=== PATIENT | female | born 1985 | race Caucasian/White ===

== ENCOUNTER 2016-08-28 13:15 | Emergency (ER) | payer OTHER, MEDICAID ==
--- NOTE | 2016-08-28 13:32 | ER Document Report ---
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 A comprehensive ED assessment and evaluation of the patient, analysis of test results and completion of medical decision making process will be conducted by an additional ED providers. TRAVEL OUTSIDE OF THE [place] IN LAST 30 DAYS: No - Related Data Allergies/Adverse Reactions: iodine [Iodine] Allergy (Intermediate, Verified 07/07/15 09:59) dermatitis latex [Latex] Allergy (Intermediate, Verified 07/07/15 09:59) dermatitis Past Medical History - Past Medical History Cardiac Medical History: Denies: Hx Coronary Artery Disease, Hx Heart Attack, Hx Hypertension Pulmonary Medical History: Denies: Hx Asthma, Hx Bronchitis, Hx COPD, Hx Pneumonia Neurological Medical History: Denies: Hx Cerebrovascular Accident, Hx Seizures Musculoskeltal Medical History: Denies Hx Arthritis - Immunizations Hx Diphtheria, Pertussis, Tetanus Vaccination: Yes - 01/31/15 Physical Exam - Vital signs Vitals: Temp Pulse Resp BP Pulse Ox 98.2 F 73 20 113/70 100 08/28/16 13:24 08/28/16 13:24 08/28/16 13:24 08/28/16 13:24 08/28/16 13:24 Course - Vital Signs Vital signs: Temp Pulse Resp BP Pulse Ox 98.2 F 73 20 113/70 100 08/28/16 13:24 08/28/16 13:24 08/28/16 13:24 08/28/16 13:24 08/28/16 13:24
--- NOTE | 2016-08-28 14:19 | ER Document Report ---
ED General - General Chief Complaint: Cat Bite Stated Complaint: CAT BITE/LEFT ARM Mode of Arrival: Ambulatory Information source: Patient Notes: 30-year-old female presents with Right to the left upper extremity tricep region just prior to arrival. Patient notes that the teeth were intact afterwards. TRAVEL OUTSIDE OF THE [place] IN LAST 30 DAYS: No - HPI Onset: Just prior to arrival Onset/Duration: Sudden Quality of pain: No pain Severity: Mild Pain Level: 1 Associated symptoms: None Exacerbated by: Denies Relieved by: Denies Similar symptoms previously: Yes Recently seen / treated by doctor: Yes Notes: Patient clean the area with chlorhexidine - Related Data Allergies/Adverse Reactions: iodine [Iodine] Allergy (Intermediate, Verified 08/28/16 13:32) dermatitis latex [Latex] Allergy (Intermediate, Verified 08/28/16 13:32) dermatitis Past Medical History - General Information source: Patient - Social History Smoking Status: Never Smoker Cigarette use (# per day): No Chew tobacco use (# tins/day): No Smoking Education Provided: No Frequency of alcohol use: None Drug Abuse: None Family History: Reviewed & Not Pertinent Patient has suicidal ideation: No Patient has homicidal ideation: No - Past Medical History Cardiac Medical History: Denies: Hx Coronary Artery Disease, Hx Heart Attack, Hx Hypertension Pulmonary Medical History: Denies: Hx Asthma, Hx Bronchitis, Hx COPD, Hx Pneumonia Neurological Medical History: Denies: Hx Cerebrovascular Accident, Hx Seizures Renal/ Medical History: Denies: Hx Peritoneal Dialysis Musculoskeltal Medical History: Denies Hx Arthritis - Immunizations Hx Diphtheria, Pertussis, Tetanus Vaccination: Yes - 01/31/15 Review of Systems - Review of Systems Notes: REVIEW OF SYSTEMS: CONSTITUTIONAL : Denies fever, chills, or sweats. Denies recent illness. EENT: Denies eye, ear, throat, or mouth pain or symptoms. Denies nasal or sinus congestion or discharge. Denies throat, tongue, or mouth swelling or difficulty swallowing. CARDIOVASCULAR: Denies chest pain. Denies palpitations or racing or irregular heart beat. Denies ankle edema. RESPIRATORY: Denies cough, cold, or chest congestion. Denies shortness of breath, difficulty breathing, or wheezing. GASTROINTESTINAL: Denies abdominal pain or distention. Denies nausea, vomiting , or diarrhea. Denies blood in vomitus, stools, or per rectum. Denies black, tarry stools. Denies constipation. GENITOURINARY: Denies difficulty urinating, painful urination, burning, frequency, blood in urine, or discharge. FEMALE GENITOURINARY: Denies vaginal bleeding, heavy or abnormal periods, irregular periods. Denies vaginal discharge or odor. MUSCULOSKELETAL: Denies back or neck pain or stiffness. Denies joint pain or swelling. SKIN: cat bite HEMATOLOGIC : Denies easy bruising or bleeding. LYMPHATIC: Denies swollen, enlarged glands. NEUROLOGICAL: Denies confusion or altered mental status. Denies passing out or loss of consciousness. Denies dizziness or lightheadedness. Denies headache. Denies weakness or paralysis or loss of use of either side. Denies problems with gait or speech. Denies sensory loss, numbness, or tingling. Denies seizures. PSYCHIATRIC: Denies anxiety or stress. Denies depression, suicidal ideation, or homicidal ideation. ALL OTHER SYSTEMS REVIEWED AND NEGATIVE. Dictation was performed using [employer] voice recognition software PHYSICAL EXAMINATION: GENERAL: Well-appearing, well-nourished and in no acute distress. HEAD: Atraumatic, normocephalic. EYES: Pupils equal round extraocular movements intact, conjunctiva are normal. ENT: Nares patent NECK: Normal range of motion LUNGS: No respiratory distress Musculoskeletal: Normal range of motion NEUROLOGICAL: Normal speech, normal gait. PSYCH: Normal mood, normal affect. SKIN: 2 puncture wound and scrate to the left inner upper extremity Physical Exam - Vital signs Vitals: Temp Pulse Resp BP Pulse Ox 98.2 F 73 20 113/70 100 08/28/16 13:24 08/28/16 13:24 08/28/16 13:24 08/28/16 13:24 08/28/16 13:24 Course - Re-evaluation Re-evalutation: 08/28/16 14:18 Patient will be started on antibodies otherwise stable for discharge After performing a Medical Screening Examination, I estimate there is LOW risk for OPEN FRACTURE, COMPARTMENT SYNDROME, TENDON RUPTURE, ACUTE NEUROVASCULAR INJURY, or RETAINED FOREIGN BODY, thus I consider the discharge disposition reasonable. Also, there is no evidence or peritonitis, sepsis, or toxicity. The patient and I have discussed the diagnosis and risks, and we agree with discharging home with close follow-up with the understanding that symptoms and presentations can change. We also discussed returning to the Emergency Department immediately if new or worsening symptoms occur. We have discussed the symptoms which are most concerning (e.g., changing or worsening pain, fever , numbness, weakness, cool or painful digits) that necessitate immediate return. - Vital Signs Vital signs: Temp Pulse Resp BP Pulse Ox 98.2 F 73 20 113/70 100 08/28/16 13:24 08/28/16 13:24 08/28/16 13:24 08/28/16 13:24 08/28/16 13:24 Discharge - Discharge Clinical Impression: Cat bite Qualifiers: Encounter type: initial encounter Qualified Code(s): W55.01XA - Bitten by cat, initial encounter Condition: Stable Disposition: HOME, SELF-CARE Instructions: Animal Bites ([facility]) Prescriptions: Amox Tr/Potassium Clavulanate [Augmentin 875-125 Tablet] 1 tab PO BID 10 Days Referrals: KEVIN CONNELL MD [Primary Care Provider] - Follow up in 3-5 days
[2016-08-28] MEDS ORDERED: DIPH/PERTUSS(ACELL)/TETANUS VAC/PF 0.5 ML SYR (>=10YO) IM ONE (14:24)
[2016-08-28 14:44] VITALS: BP 118/75
== END 2016-08-28 14:30 | disposition home or self-care (01) ==
LOC: ER 13:15
DX: S41.152A Open bite of left upper arm, initial encounter (principal); W55.01XA Bitten by cat, initial encounter; Z91.040 Latex allergy status
CPT/HCPCS: 99283

== ENCOUNTER 2016-11-30 07:39 | Emergency (ER) | payer BC, OTHER ==
--- NOTE | 2016-11-30 09:10 | ER Document Report ---
HPI - HPI Patient complains to provider of: nail bed pain Pain Level: 2 Context: Patient is a 31-year-old female presents emergency department with avulsion of the right hand. Patient states that she is getting her thumb into her car when she caught it on the door. She admits to bleeding but is otherwise controlled in pain. Otherwise she denies any swelling of the nailbed, deformities, decrease in motor sensation. Otherwise no medical problems. Tetanus is up to - CARDIOVASCULAR Cardiovascular: DENIES: Chest pain - REPRODUCTIVE Reproductive: REPORTS: : - DERM Skin Color: Normal Past Medical History - Social History Smoking Status: Never Smoker Chew tobacco use (# tins/day): No Frequency of alcohol use: None Drug Abuse: None Family History: Reviewed & Not Pertinent Patient has suicidal ideation: No Patient has homicidal ideation: No - Past Medical History Cardiac Medical History: Denies: Hx Coronary Artery Disease, Hx Heart Attack, Hx Hypertension Pulmonary Medical History: Denies: Hx Asthma, Hx Bronchitis, Hx COPD, Hx Pneumonia Neurological Medical History: Denies: Hx Cerebrovascular Accident, Hx Seizures Renal/ Medical History: Denies: Hx Peritoneal Dialysis Musculoskeltal Medical History: Denies Hx Arthritis Past Surgical History: Reports: Hx Oral Surgery, Hx Tubal Ligation - Immunizations Hx Diphtheria, Pertussis, Tetanus Vaccination: Yes - 01/31/15 Vertical Provider Document - CONSTITUTIONAL Agree With Documented VS: Yes Exam Limitations: No Limitations General Appearance: WD/WN, No Apparent Distress - INFECTION CONTROL TRAVEL OUTSIDE OF THE [place] IN LAST 30 DAYS: No - RESPIRATORY O2 Sat by Pulse Oximetry: 97 - CARDIOVASCULAR Pulses: Normal: Radial Notes: Capillary refill less than 2 seconds in all upper extremity digits bilaterally - MUSCULOSKELETAL/EXTREMETIES Musculoskeletal/Extremeties: MAEW, FROM, Tender - At the tip of the right thumbnail. No evidence of tenderness, subungual hematoma. No evidence of nail avulsion requiring removal of the nail. - NEURO Level of Consciousness: Awake, Alert, Appropriate Motor/Sensory: No Motor Deficit, No Sensory Deficit - DERM Integumentary: Warm, Dry, No Rash Course - Re-evaluation Re-evalutation: 11/30/16 18:33 Nail removal is not indicated at this time. Stable for discharge home with instruction for pressure dressing and strict return precautions - Vital Signs Vital signs: Temp Pulse Resp BP Pulse Ox 98.2 F 93 18 123/74 97 11/30/16 07:44 11/30/16 07:44 11/30/16 07:44 11/30/16 07:44 11/30/16 07:44 Discharge - Discharge Clinical Impression: Nail avulsion, finger Condition: Good Disposition: HOME, SELF-CARE Instructions: Avulsed Nail ([facility]) Additional Instructions: Keep a pressure dressing on it to hold your nail onto the nailbed to prohibit from blood collecting underneath. You can use a regular band-aid to do so Referrals: GALILEA MERCER, [Primary Care Provider] - Follow up as needed
[2016-11-30 09:21] VITALS: BP 110/65
== END 2016-11-30 09:21 | disposition home or self-care (01) ==
LOC: ER 07:39
DX: O9A.219 Injury, poisoning and certain other consequences of external causes complicating pregnancy, unspecified trimester (principal); S61.101A Unspecified open wound of right thumb with damage to nail, initial encounter; W22.8XXA Striking against or struck by other objects, initial encounter; Y93.89 Activity, other specified; Y92.009 Unspecified place in unspecified non-institutional (private) residence as the place of occurrence of the external cause; Z3A.00 Weeks of gestation of pregnancy not specified
CPT/HCPCS: 99283

== ENCOUNTER → 2017-12-20 | Outpatient (CLI) | payer OTHER, BC ==
--- NOTE | 2017-12-21 15:51 | WOMENS IMAGING REPORT ---
EXAM DESCRIPTION: BILAT SCREENING MAMMO W/CAD COMPLETED DATE/TIME: 12/20/2017 10:20 am REASON FOR STUDY: ROUTINE SCREENING;Z12.31 Z80.3 FAMILY HISTORY OF MALIGNANT NEOPLASM OF BREAST COMPARISON: None. TECHNIQUE: Standard craniocaudal and mediolateral oblique views of each breast recorded using digita l acquisition. LIMITATIONS: None. FINDINGS: No masses, calcifications or architectural distortion. No areas of suspicion. Read with the assistance of CAD. .[facility] - R2 Cenova Version 1.3 .[facility] - R2 Cenova Version 1.3 .[facility] - R2 Cenova Version 2.4 .[facility] - R2 Cenova Version 2.4 .[facility] - R2 Medical Referral Coordinator Version 9.2 IMPRESSION: NORMAL MAMMOGRAM. BIRADS 1. BREAST DENSITY: c. The breasts are heterogeneously dense, which may obscure small masses. BIRAD: 1 NEGATIVE RECOMMENDATION: ROUTINE SCREENING COMMENT: The patient has been notified of the results by letter per SA requirements. Additional no tification policies are in place for contacting patient with suspicious or incomplete findings. Quality ID #[id number]: [employer] recommends an annual screening mammogram for women aged 40 years or over. This facility utilizes a reminder system to ensure that all patients receive reminder letters, and/or direct phone calls for appointments. This includes reminders for routine scr eening mammograms, diagnostic mammograms, or other Breast Imaging Interventions when appropriate. Th is patient will be placed in the appropriate reminder system. The [employer] [employer] (ACR) has developed recommendations for screening MRI of the breast s in certain patient populations, to be used in conjunction with mammography. Breast MRI surveillanc e may be appropriate for women with more than 20% lifetime risk of developing breast cancer as deter mined by genetic testing, significant family history of the disease, or history of mantle radiation f or Hodgkins Disease. ACR Practice Guidelines 2008. TECHNICAL DOCUMENTATION: FINDING NUMBER: (1) ASSESSMENT: (1) JOB ID: [id number] [employer]- All Rights Reserved Reading location - IP/workstation name: [email or web address]
== END ==
LOC: WI 09:41
PROVIDERS: ATTEND Nurse Practitioner Family
DX: Z12.31 Encounter for screening mammogram for malignant neoplasm of breast (principal); Z80.3 Family history of malignant neoplasm of breast
CPT/HCPCS: 77067

== ENCOUNTER 2018-02-17 17:34 | Emergency (ER) | payer OTHER, BC ==
[2018-02-17] MEDS ORDERED: IBUPROFEN 400 MG TABLET PO ONE (18:36)
--- NOTE | 2018-02-17 19:04 | RADIOLOGY REPORT (SQ) ---
EXAM DESCRIPTION: CHEST 2 VIEWS COMPLETED DATE/TIME: 02/17/2018 6:56 pm REASON FOR STUDY: chest pain COMPARISON: None. EXAM PARAMETERS: NUMBER OF VIEWS: two views TECHNIQUE: Digital Frontal and Lateral radiographic views of the chest acquired. RADIATION DOSE: NA LIMITATIONS: none FINDINGS: LUNGS AND PLEURA: No opacities, masses or pneumothorax. No pleural effusion. MEDIASTINUM AND HILAR STRUCTURES: No masses or contour abnormalities. HEART AND VASCULAR STRUCTURES: Heart normal size. No evidence for failure. BONES: No acute findings. HARDWARE: None in the chest. OTHER: No other significant finding. IMPRESSION: NO ACUTE RADIOGRAPHIC FINDING IN THE CHEST. TECHNICAL DOCUMENTATION: JOB ID: [id number] [employer]- All Rights Reserved Reading location - IP/workstation name: [email or web address]
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
--- NOTE | 2018-02-17 19:05 | RADIOLOGY REPORT (SQ) ---
EXAM DESCRIPTION: HAND RIGHT 3 VIEWS COMPLETED DATE/TIME: 02/17/2018 6:56 pm REASON FOR STUDY: right hand pain COMPARISON: None. EXAM PARAMETERS: NUMBER OF VIEWS: Three views. TECHNIQUE: AP, lateral and oblique radiographic images acquired of the right hand. LIMITATIONS: None. FINDINGS: MINERALIZATION: Normal. BONES: No acute fracture or dislocation. No worrisome bone lesions. JOINTS: No effusions. SOFT TISSUES: No soft tissue swelling. No foreign body. OTHER: No other significant finding. IMPRESSION: NEGATIVE STUDY OF THE RIGHT HAND. NO RADIOGRAPHIC EVIDENCE OF ACUTE INJURY. TECHNICAL DOCUMENTATION: JOB ID: [id number] [employer]- All Rights Reserved Reading location - IP/workstation name: [email or web address]
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
[2018-02-17] MEDS ORDERED: METHOCARBAMOL 750 MG TABLET PO ONE (19:38)
== END 2018-02-17 20:11 | disposition home or self-care (01) ==
LOC: ER 17:34
DX: S63.641A Sprain of metacarpophalangeal joint of right thumb, initial encounter (principal); S16.1XXA Strain of muscle, fascia and tendon at neck level, initial encounter; S00.83XA Contusion of other part of head, initial encounter; S80.212A Abrasion, left knee, initial encounter; R51 Headache; R07.9 Chest pain, unspecified; M25.531 Pain in right wrist; V43.52XA Car driver injured in collision with other type car in traffic accident, initial encounter; Z91.040 Latex allergy status
CPT/HCPCS: 99284; 71046; 73130; 73110; 29125; J3490 ×2

== ENCOUNTER → 2018-03-09 | Outpatient (CLI) | payer BC, OTHER ==
--- NOTE | 2018-03-12 09:11 | RADIOLOGY REPORT (SQ) ---
EXAM DESCRIPTION: MRI RT UPPER EXTREMITY WITHOUT COMPLETED DATE/TIME: 03/09/2018 12:52 pm REASON FOR STUDY: SPRAIN OF METACARPOPHALANGEAL JOINT OF RIGHT THUMB, INIT S63.641A SPRAIN OF METAC ARPOPHALANGEAL JOINT OF RIGHT THUMB, COMPARISON: None. TECHNIQUE: Multiplanar imaging to include T1-weighted images, T-2 weighted images, and gradient echo imaging. Orthogonal images orientated to the plane of the right thumb. Images saved to PACS. LIMITATIONS: None. FINDINGS: BONES: No generalized marrow placement. No occult fracture. LIGAMENTS: Ulnar collateral ligament is torn from the base of the proximal phalanx but not retracted. Adductor aponeurosis intact. No Stener lesion. TENDONS: Tendons are intact without evidence for tendinopathy. SOFT TISSUES: Muscles and subcutaneous soft tissues without significant abnormality. OTHER: No other significant finding. IMPRESSION: Torn ulnar collateral ligament. TECHNICAL DOCUMENTATION: JOB ID: [id number] [employer]- All Rights Reserved Reading location - IP/workstation name: [email or web address]
== END ==
LOC: RAD 11:57
PROVIDERS: ATTEND Orthopaedic Surgery
DX: S63.641A Sprain of metacarpophalangeal joint of right thumb, initial encounter (principal); X58.XXXA Exposure to other specified factors, initial encounter

== ENCOUNTER 2018-03-22 05:29 | Day surgery (SDC) | payer BC, OTHER ==
[2018-03-13 11:41] LABS: HEMATOCRIT 38.1 % (36.0-47.0); MEAN CORPUSCULAR HEMOGLOBIN 30.2 pg (27.0-33.4); MEAN CORPUSCULAR HGB CONC 34.1 g/dL (32.0-36.0); MEAN CORPUSCULAR VOLUME 89 fl (80-97); PLATELET COUNT 277 10^3/uL (150-450); RED CELL DISTRIBUTION WIDTH 12.7 % (11.5-14.0); WHITE BLOOD COUNT 5.8 10^3/uL (4.0-10.5)
[2018-03-13 11:44] LABS: APPEARANCE,URINE SLIGHTLY-CLOUDY; BILIRUBIN,URINE NEGATIVE (NEGATIVE); COLOR,URINE YELLOW; GLUCOSE, URINE NEGATIVE (NEGATIVE); KETONES,URINE NEGATIVE (NEGATIVE); LEUKOCYTE ESTERASE,URINE TRACE (NEGATIVE); NITRITE,URINE NEGATIVE (NEGATIVE); PROTEIN,URINE NEGATIVE (NEGATIVE); URINE SPECIFIC GRAVITY 1.023; UROBILINOGEN,URINE NEGATIVE mg/dL (<2.0)
[2018-03-13 11:59] LABS: BLOOD UREA NITROGEN 11 mg/dL (7-20); CALCIUM 9.2 mg/dL (8.4-10.2); POTASSIUM 3.7 mmol/L (3.6-5.0)
[2018-03-13 12:41] LABS: ALANINE AMINOTRANSFERASE 19 U/L (9-52); ALBUMIN 3.8 g/dL (3.5-5.0); ALKALINE PHOSPHATASE 57 U/L (38-126); ANION GAP 7 (5-19); ASPARTATE AMINO TRANSFERASE 21 U/L (14-36); BILIRUBIN,DIRECT 0.2 mg/dL (0.0-0.4); BILIRUBIN,TOTAL 0.3 mg/dL (0.2-1.3); CARBON DIOXIDE 27 mmol/L (22-30); CHLORIDE 107 mmol/L (98-107); GLUCOSE 88 mg/dL (75-110); SODIUM 140.7 mmol/L (137-145); TOTAL PROTEIN 7.1 g/dL (6.3-8.2)
[~2018-03-22 05:29] MED LIST: CEFAZOLIN 2 GM/D5W RTU 2 GM/50 ML RTUPB IV ONE; CEFAZOLIN 2 GM/D5W RTU 2 GM/50 ML RTUPB IV PRN; LACTATED RINGERS 1000 ML IV PRN; LIDOCAINE 0.5% INJ-PF (5 MG/ML) 50 ML SDV SUBCUT PRN
[2018-03-22] MEDS ORDERED: FENTANYL CITRATE INJ/PF 250 MCG/5 ML AMPULE ONE (07:16)
[2018-03-22] MEDS ORDERED: PROPOFOL INJ 200 MG/20 ML VIAL IV ONE (07:17)
[2018-03-22] MEDS ORDERED: HYDROMORPHONE HCL INJ/PF 2 MG/ML AMPULE ONE (07:17)
[2018-03-22] MEDS ORDERED: MIDAZOLAM 2 MG/2 ML INJ ONE (07:17)
[2018-03-22] MEDS ORDERED: ACETAMINOPHEN 1,000 MG/100 ML RTUPB IV ONE (07:17)
[2018-03-22] MEDS ORDERED: FENTANYL CITRATE INJ/PF 100 MCG/2 ML AMPUL IV PRN ×3 (08:19)
[2018-03-22] MEDS ORDERED: PROMETHAZINE HCL INJ 25 MG/1 ML VIAL IV PRN (08:19)
[2018-03-22] MEDS ORDERED: MEPERIDINE HCL/PF INJ 25 MG/1 ML DISP.SYRIN IV PRN (08:19)
[2018-03-22] MEDS ORDERED: DIPHENHYDRAMINE HCL 50 MG/ML VIAL IV PRN (08:19)
[2018-03-22] MEDS ORDERED: SIMETHICONE 80 MG TAB.CHEW PO PRN (10:01)
[2018-03-22] MEDS ORDERED: RINGERS SOLUTION,LACTATED 1,000 ML IV PRN (10:01)
[2018-03-22] MEDS ORDERED: OXYCODONE-ACETAMINOPHEN 5-325 MG TABLET PO PRN ×2 (10:01)
[2018-03-22] MEDS ORDERED: ACETAMINOPHEN 325 MG TABLET PO PRN (10:01)
[2018-03-22] MEDS ORDERED: ACETAMINOPHEN 1,000 MG/100 ML RTUPB IV PRN (10:01)
[2018-03-22] MEDS ORDERED: HYDROMORPHONE HCL INJ/PF 2 MG/ML AMPULE IV PRN (10:01)
[2018-03-22] MEDS ORDERED: PROMETHAZINE HCL INJ 25 MG/1 ML VIAL ONE (10:05)
--- NOTE | 2018-03-22 10:16 | Operative Report ---
Operative Report DATE OF SURGERY: 03/22/18 PREOPERATIVE DIAGNOSIS: Heavy menses and high-grade cervical dysplasia POSTOPERATIVE DIAGNOSIS: Same OPERATION: Da Ke hysterectomy SURGEON: JOSEFINA PARKER ANESTHESIA: GA TISSUE REMOVED OR ALTERED: Uterus cervix COMPLICATIONS: None ESTIMATED BLOOD LOSS: 50 cc INTRAOPERATIVE FINDINGS: Normal uterus and ovaries. The fallopian tubes have been previously removed. PROCEDURE: Patient was taken the OR and placed in supine position. General anesthesia was induced. She is placed in the dorsolithotomy position using Delbert stirrups. Her abdomen vagina and perineum were prepared and draped in sterile fashion. A weighted speculum was placed in the vagina and the anterior lip cervix grasped with tenaculum. Uterus sounded 8 cm. The V care uterine manipulator was placed. Caro catheter was also placed. An incision was made 5 cm above the umbilicus. The fascia was identified and grasped with [place] clamps and elevated. The fascia was incised with a pair of scissors and a blunt port was placed. Laparoscopy laparoscopy revealed appropriate placement. The lateral ports were placed under laparoscopic visualization and a right lower quadrant port was placed for insufflation. Patient was then placed in steep Trendelenburg and the robot was docked to the patient. Next I went to the console. View of the pelvis was quite good. The ureters were well down away from the operative field. The round ligaments were then cauterized with bipolar and cut with monopolar herb. The utero-ovarian pedicles were cauterized with bipolar and cut with monopolar herb. The broad ligament with was then cauterized with bipolar and cut with monopolar herb next to the body of the uterus. The anterior leaf the broad ligament was developed creating a bladder flap. The uterine arteries were cauterized with bipolar and cut with monopolar herb. The cardinal ligaments bilaterally were cauterized with bipolar and cut with monopolar herb. By this point we reached the V care cup. Using the monopolar herb the vaginal cuff was incised on top of the V care cup and the uterus was removed through the vagina. The vaginal incision was then closed using it 2-0 V lock suture. I started at the right side of the cuff incorporating anterior vaginal mucosa lateral vaginal sidewall posterior vaginal mucosa in the stitch. This was drawn tight. A running suture was then placed across from right to left incorporating anterior vaginal mucosa to posterior vaginal mucosa. Upon reaching the left angle anterior vaginal mucosa lateral sidewall posterior vaginal mucosa were grasped and in the stitch. 3 more sutures were placed moving back medially once again. The pelvis was then irrigated and suctioned free of fluid. Hemostasis was good at all pedicles. The robot was undocked from the patient. The pedicles were once again inspected and found to be hemostatic. The lateral ports were removed under laparoscopic visualization. The gas was allowed to escape from the abdomen in the right lower quadrant port was removed under laparoscopic visualization. The umbilical port was also removed under labs Visualization. The fascia at the umbilicus was closed with a 2-0 Vicryl stitch. The skin was closed at all 4 sites with a 4-0 undyed Vicryl suture. The patient was extubated in the OR and taken to recovery room in stable condition.
[2018-03-22] MEDS: KETOROLAC TROMETHAMINE INJ/PF 30 MG/1 ML SDV IV SCH ×2 (12:20→16:59)
[2018-03-22] MEDS ORDERED: NEOSTIGMINE METHYLSULFATE 10 MG/10 ML VIAL ONE (14:01)
[2018-03-22] MEDS ORDERED: DEXAMETHASONE SOD PHOSPHATE INJ 4 MG/1 ML VIAL ONE (14:01)
[2018-03-22] MEDS ORDERED: GLYCOPYRROLATE 1 MG/5 ML SYRINGE ONE (14:01)
[2018-03-22] MEDS ORDERED: ONDANSETRON HCL INJ/PF 4 MG/2 ML SDV ONE (14:01)
[2018-03-22] MEDS ORDERED: ROCURONIUM BROMIDE INJ 50 MG/5 ML VIAL IV ONE (14:01)
[2018-03-22 15:29] LABS: HEMATOCRIT 37.3 % (36.0-47.0); HEMOGLOBIN 13.1 g/dL (12.0-15.5); MEAN CORPUSCULAR HGB CONC 35.1 g/dL (32.0-36.0); MEAN CORPUSCULAR VOLUME 88 fl (80-97); PLATELET COUNT 229 10^3/uL (150-450); RED BLOOD COUNT 4.23 10^6/uL (3.72-5.28); RED CELL DISTRIBUTION WIDTH 12.5 % (11.5-14.0); WHITE BLOOD COUNT 14.2 10^3/uL (4.0-10.5)
[2018-03-22 15:47] LABS: ABSOLUTE LYMPHOCYTES# (MANUAL) 0.9 10^3/uL (0.5-4.7); ABSOLUTE MONOCYTES # (MANUAL) 0.1 10^3/uL (0.1-1.4); ABSOLUTE NEUTROPHILS# (MANUAL) 13.2 10^3/uL (1.7-8.2); BASOPHILS % (MANUAL) 0 % (0-2); EOSINOPHILS % (MANUAL) 0 % (0-6); LYMPHOCYTES % (MANUAL) 5 % (13-45); MONOCYTES % (MANUAL) 1 % (3-13); SEGMENTED NEUTROPHILS % (MAN) 93 % (42-78); TOTAL CELLS COUNTED 100
[2018-03-22 15:49] LABS: OVALOCYTES SLIGHT; PLATELET COMMENT ADEQUATE; POIKILOCYTOSIS SLIGHT
[2018-03-22] MEDS ORDERED: DOCUSATE SODIUM 100 MG CAPSULE ONE (16:58)
[2018-03-22] MEDS: DOCUSATE SODIUM 100 MG CAPSULE PO SCH (16:59)
[2018-03-22] MEDS: PROMETHAZINE HCL INJ 25 MG/1 ML VIAL IV PRN (18:39)
[2018-03-23] MEDS: KETOROLAC TROMETHAMINE INJ/PF 30 MG/1 ML SDV IV SCH (02:39)
[2018-03-23] MEDS: PROMETHAZINE HCL INJ 25 MG/1 ML VIAL IV PRN (02:45)
[2018-03-23 06:59] LABS: HEMATOCRIT 35.6 % (36.0-47.0); HEMOGLOBIN 12.2 g/dL (12.0-15.5); MEAN CORPUSCULAR HEMOGLOBIN 30.6 pg (27.0-33.4); MEAN CORPUSCULAR HGB CONC 34.3 g/dL (32.0-36.0); MEAN CORPUSCULAR VOLUME 89 fl (80-97); PLATELET COUNT 221 10^3/uL (150-450); RED BLOOD COUNT 3.98 10^6/uL (3.72-5.28); RED CELL DISTRIBUTION WIDTH 12.5 % (11.5-14.0); WHITE BLOOD COUNT 12.6 10^3/uL (4.0-10.5)
[2018-03-23] MEDS ORDERED: IBUPROFEN 800 MG TABLET PO SCH (09:00)
[2018-03-23] MEDS: DOCUSATE SODIUM 100 MG CAPSULE PO SCH (09:14)
--- NOTE | 2018-03-23 09:58 | PDOC DISCHARGE SUMMARY ---
General - Admit/Disc Date/PCP Admission Date/Primary Care Provider: CHUNG MATHEWS Discharge Date: 03/23/18 - Discharge Diagnosis (1) Menorrhagia Is this a current diagnosis for this admission?: Yes (2) Cervical dysplasia Is this a current diagnosis for this admission?: Yes - Additional Information Home Medications: Loratadine [Claritin] 1 tab PO DAILY 05/11/15 Vit 40/Iron/Folic/Dha [ Multi-Dha Softgel] 1 cap PO DAILY 05/11 Methocarbamol [Robaxin 750 mg Tablet] 750 mg PO ASDIR PRN #40 tablet 02/17/18 History of Present Illness Patient complains of: Heavy menses and high-grade cervical dysplasia History of Present Illness: TARAS ARVIZU is a 32 year old female She presents with heavy menses and high-grade cervical dysplasia that has been treated with LEEP and has not resolved. She requests hysterectomy. Hospital Course Hospital Course: Patient underwent a robotic assisted hysterectomy. She did well through the night and her catheter was removed. She has been able to void and is tolerating pain medications and wishes to go home today. Physical Exam - Physical Exam Vital Signs: Temp Pulse Resp BP Pulse Ox 98.3 F 84 16 113/61 99 03/23/18 08:35 03/23/18 08:35 03/23/18 08:35 03/23/18 08:35 03/23/18 08:35 Intake & Output 03/22/18 03/23/18 03/24/18 06:59 06:59 06:59 Intake Total 0 2550 Output Total 2450 Balance 0 100 Weight 97.07 kg 96.4 kg General appearance: PRESENT: no acute distress - Her abdomen is soft nontender no masses, well-developed, well-nourished Result Laboratory Results: 03/23/18 06:45 03/13/18 10:00 03/22/18 03/23/18 15:20 06:45 WBC 14.2 H 12.6 H RBC 4.23 3.98 Hgb 13.1 12.2 Hct 37.3 35.6 L MCV 88 89 MCH 31.0 30.6 MCHC 35.1 34.3 RDW 12.5 12.5 Plt Count 229 221 Seg Neutrophils % Not Reportable Lymphocytes % Not Reportable Monocytes % Not Reportable Eosinophils % Not Reportable Basophils % Not Reportable Absolute Neutrophils Not Reportable Absolute Lymphocytes Not Reportable Absolute Monocytes Not Reportable Absolute Eosinophils Not Reportable Absolute Basophils Not Reportable Impressions: Postop day 1 from da Ke hysterectomy. She appears to be doing well will be discharged home with pain medication Plan Discharge Plan: Discharge home pelvic rest as well as rest at home. She will follow-up in 1 week. Time Spent: Less than 30 Minutes
[2018-03-23] MEDS ORDERED: PRENATAL VITAMIN W DHA CAPSULE PO SCH (10:00)
[2018-03-23 10:51] VITALS: BP 102/74
== END 2018-03-23 12:15 | disposition home or self-care (01) ==
LOC: OROUT 05:29 → 2N 11:39 → OROUT 03-23 12:15
PROVIDERS: ATTEND Obstetrics & Gynecology
DX: N92.0 Excessive and frequent menstruation with regular cycle (principal); R87.613 High grade squamous intraepithelial lesion on cytologic smear of cervix (HGSIL); G43.909 Migraine, unspecified, not intractable, without status migrainosus; Z79.899 Other long term (current) drug therapy; Z87.891 Personal history of nicotine dependence; Z91.040 Latex allergy status
CPT/HCPCS: 58570; S2900; 36415; 80053; 81001; 81025; 85025; 85027; 86850; 86900; 86901; 88307; 944; 94799; J0131; J0690; J1100; J1170; J1885; J2250; J2405; J2550; J2704; J3010; J3490

== ENCOUNTER → 2018-07-27 | Outpatient (CLI) | payer OTHER, BC | LOC: LAB 19:29 | PROVIDERS: ATTEND Physician Assistant | DX: Z20.7 Contact with and (suspected) exposure to pediculosis, acariasis and other infestations (principal) | CPT/HCPCS: 36415 ==

== ENCOUNTER 2020-06-09 11:32 | Day surgery (SDC) | payer BC, OTHER ==
[2020-06-05 12:14] LABS: HEMATOCRIT 36.5 % (36.0-47.0); MEAN CORPUSCULAR HEMOGLOBIN 32.1 pg (27.0-33.4); MEAN CORPUSCULAR HGB CONC 35.7 g/dL (32.0-36.0); MEAN CORPUSCULAR VOLUME 90 fl (80-97); PLATELET COUNT 232 10^3/uL (150-450); RED BLOOD COUNT 4.05 10^6/uL (3.72-5.28); RED CELL DISTRIBUTION WIDTH 12.7 % (11.5-14.0); WHITE BLOOD COUNT 5.5 10^3/uL (4.0-10.5)
[2020-06-05 12:17] LABS: APPEARANCE,URINE SLIGHTLY-CLOUDY; BILIRUBIN,URINE NEGATIVE (NEGATIVE); COLOR,URINE YELLOW; GLUCOSE, URINE NEGATIVE (NEGATIVE); KETONES,URINE NEGATIVE (NEGATIVE); LEUKOCYTE ESTERASE,URINE NEGATIVE (NEGATIVE); NITRITE,URINE NEGATIVE (NEGATIVE); PROTEIN,URINE 30 mg/dL (NEGATIVE); URINE SPECIFIC GRAVITY 1.027; UROBILINOGEN,URINE NEGATIVE mg/dL (<2.0)
[2020-06-05 12:34] LABS: ANION GAP 9 (5-19); BLOOD UREA NITROGEN 15 mg/dL (7-20); CALCIUM 9.6 mg/dL (8.4-10.2); CARBON DIOXIDE 24 mmol/L (22-30); CHLORIDE 106 mmol/L (98-107); GLUCOSE 71 mg/dL (75-110); POTASSIUM 4.1 mmol/L (3.6-5.0)
[~2020-06-09 11:32] MED LIST changes: -CEFAZOLIN 2 GM/D5W RTU 2 GM/50 ML RTUPB IV ONE; -LACTATED RINGERS 1000 ML IV PRN; -LIDOCAINE 0.5% INJ-PF (5 MG/ML) 50 ML SDV SUBCUT PRN; +RINGERS SOLUTION,LACTATED 1,000 ML IV PRN
[2020-06-09] MEDS ORDERED: CEFAZOLIN 2 GM/D5W RTU 2 GM/50 ML RTUPB IV ONE (11:55)
[2020-06-09] MEDS ORDERED: SCOPOLAMINE HYDROBROMIDE 1.5 MG PATCH.TD72 ONE (12:41)
[2020-06-09] MEDS ORDERED: SCOPOLAMINE HYDROBROMIDE 1.5 MG PATCH.TD72 TD ONE (12:45)
[2020-06-09] MEDS ORDERED: MIDAZOLAM 2 MG/2 ML INJ ONE (13:51)
[2020-06-09] MEDS ORDERED: FENTANYL CITRATE INJ/PF 100 MCG/2 ML AMPUL ONE (13:51)
[2020-06-09] MEDS ORDERED: HYDROMORPHONE HCL INJ/PF 2 MG/ML AMPULE ONE (13:52)
[2020-06-09] MEDS ORDERED: PROPOFOL INJ 200 MG/20 ML VIAL IV ONE ×3 (13:52→14:29)
[2020-06-09] MEDS ORDERED: BUPIVACAINE HCL 0.5 % INJ/PF 30 ML SDV ONE (14:27)
[2020-06-09] MEDS ORDERED: ONDANSETRON HCL INJ/PF 4 MG/2 ML SDV IV PRN (14:58)
[2020-06-09] MEDS ORDERED: MORPHINE SULFATE 10 MG/ML INJ IV PRN ×2 (14:58→15:12)
[2020-06-09] MEDS ORDERED: MEPERIDINE HCL/PF INJ 25 MG/1 ML DISP.SYRIN IV PRN (14:58)
[2020-06-09] MEDS ORDERED: OXYCODONE-ACETAMINOPHEN 5-325 MG TABLET PO PRN ×3 (14:58→15:12)
[2020-06-09] MEDS ORDERED: FENTANYL CITRATE INJ/PF 100 MCG/2 ML AMPUL IV PRN ×2 (14:58)
[2020-06-09] MEDS ORDERED: PROMETHAZINE HCL INJ 25 MG/1 ML VIAL IV PRN ×2 (14:58)
[2020-06-09] MEDS ORDERED: DIPHENHYDRAMINE HCL 50 MG/ML VIAL IV PRN (14:58)
--- NOTE | 2020-06-09 15:13 | Discharge Summary ---
Discharge Summary (SDC) - Discharge Final Diagnosis: Right carpal tunnel syndrome Right cubital tunnel syndrome Date of Surgery: 06/09/20 Discharge Date: 06/09/20 Condition: Good Treatment or Instructions: Schedule Follow Up w/ Dr. Jeronimo Russ @ [facility] to be seen in 10-14 days or as scheduled [place]: [place]: [place]: Ice and elevate May begin finger range of motion attempting to make full fist. Please use ibuprofen (Motrin or Advil) 600-800 mg every 8 hours as needed for pain or fever DO NOT TAKE w/ TORADOL may use once TORADOL complete. You may also use acetaminophen (Tylenol) 1000 mg every 4-6 hours as needed for pain or fever. Please be aware that many medications contain acetaminophen, do not exceed a total of 1000 mg of acetaminophen every 6 hours. If ibuprofen and acetaminophen are not sufficient for your pain you may take the Percocet/Olivet. Please be aware that the Percocet/Olivet does contain Tylenol. Stool softener of choice when on pain medication. USE OF [id number] IBUPROFEN: Ibuprofen (Advil, Nuprin, Medipren, Motrin IB) is a medication for fever and pain control. In addition, it has anti- inflammatory effects which may be beneficial, especially in the treatment of injuries. It's best to take ibuprofen with food. Persons with ulcer disease or allergy to aspirin should notify their physician of this before taking ibuprofen. Ibuprofen can be given every four to six hours, for a total of four doses daily. Age Pain or fever dose Antiinflammatory dose 6-8 yr 200 mg (1 tab) 200 mg (1 tab) 9-11 yr 200 mg (1 tab) 200-400 mg (1-2 tab) 11-14 yr 200-400 mg (1-2 tab) 400 mg (2 tab) 15-adult 400 mg (2 tab) 600 mg (3 tab) ORAL NARCOTIC MEDICATION: You have been given a prescription for pain control. This medication is a narcotic. It's best taken with food, as nausea can result if taken on an empty stomach. Don't operate machinery or drive within six hours of taking this medication. Do not combine this medicine with alcohol, or with any medication which can cause sedation (such as cold tablets or sleeping pills) unless you get permission from the physician. Narcotics tend to cause constipation. If possible, drink plenty of fluids and eat a diet high in fiber and fruits. Please be aware that prescription narcotics also have the potential for abuse. People become addicted to these medications because of the general sense of wellbeing that they induce. This feeling along with a significant reduction in tension, anxiety, and aggression provides a stimulating seductive quality to these drugs. Once your pain is under control, we encourage you to discard your unused narcotics. Prescriptions: Oxycodone HCl/Acetaminophen [Percocet 5-325 mg Tablet] 1 tab PO Q6 PRN #25 tab PRN Reason: Referrals: RITESH HUANG FNP-C [Primary Care Provider] - Discharge Diet: As Tolerated Respiratory Treatments at Home: Deep Breathing/Coughing, Incentive Spirometer Discharge Activity: No Lifting Over 10 Pounds, No Lifting/Push/Pulling Report the Following to Your Physician Immediately: Fever over 101 Degrees, Unusual Bleeding, Redness, Swelling, Warmth, Increased Soreness
--- NOTE | 2020-06-09 15:16 | Operative Report ---
Operative Report DATE OF SURGERY: 06/09/20 PREOPERATIVE DIAGNOSIS: Right carpal/cubital tunnel syndrome POSTOPERATIVE DIAGNOSIS: Same OPERATION: 1. Right endoscopic carpal tunnel release. 2. Right in situ cubital tunnel release SURGEON: JAIRO BERNSTEIN ANESTHESIA: GA COMPLICATIONS: None ESTIMATED BLOOD LOSS: Minimal PROCEDURE: Indication for above procedure: 34-year-old female with numbness and tingling throughout the ulnar and median nerve distribution. Patient electrodiagnostic testing demonstrated carpal tunnel syndrome with examination findings positive for cubital tunnel. Patient attempted conservative measures including activity modification but given persistent symptoms decision was made to proceed with operative intervention. Risk and benefits were explained to the patient patient verbalized understanding consented for surgical procedure. Procedure In Detail: Patient was seen and evaluated in the preoperative holding area. The RIGHT upper extremity was initialized and marked. Patient received 2g of Ancef IV for bacterial prophylaxis. Patient was taken back to the operative room where transferred to the operative table and placed under general anesthesia. Once they were adequately anesthetized a nonsterile tourniquet was placed on the upper extremity. A surgical team debriefing was performed ensuring all i nstrumentation was available, the surgical procedure was discussed with possible concerns reviewed. The upper extremity was prepped with chlorhexidine and alcohol and draped in a sterile fashion. A timeout was done identifying correct patient, procedure and extremity everyone in attendance agree with this and verbalized no concerns. The extremity was exsanguinated the tourniquet was inflated to 250 mmHg. A transverse skin incision was made just proximal to the wrist flexion crease ulnar to the palmaris longus. Blunt dissection was performed down to the palmaris longus tendon which was retracted radially. Deep to the palmaris longus tendon was the volar carpal ligament this was incised identifying the median nerve deep. With the use of a Leland elevator any soft tissue/synovium was freed from the undersurface of the transverse carpal ligament. The hook of hamate was identified ulnarly. The Arthrex single incision carpal tunnel system was utilized. The dilators were then introduced beginning with #1 progressing to a #3 gently dilating the carpal canal. I then introduced the scope within the cannula and identified transverse carpal ligament ensuring the median nerve was not visualized within the cannula. I triangulated distally with a 25-gauge needle identifying the distal aspect of the transverse carpal ligament, to ensure protection of the superficial palmar arch. The arthroscopic knife was used to incise the transverse carpal ligament under direct visualization with the arthroscopic camera. Any excess transverse fibers that remained after the first past were carefully released with a repeat pass. The median nerve was then directly visualized radially without disruption. Once this was completed I placed the #3 dilator and assured I got complete release of the transverse carpal ligament without residual compression. The median nerve was directly visualized and free of any overlying compression. I then turned my attention to release of the volar antebrachial fascia proximally. Once again a Leland was used to open the wound and I proceeded with cannula #1 to #3. The arthroscope was introduced into the cannula and under direct visualization the volar antebrachial fascia was released. Once this was complete I copiusly irrigated the wound with normal saline. Skin incision was closed with horizontal mattress 4-0 nylon suture. Attention then turned to cubital tunnel release. Longitudinal skin incision was made along the cubital tunnel blunt dissection was performed. Medial antebrachial cutaneous nerve was elevated with the skin flap. Ulnar nerve was identified within the cubital tunnel. Herrera's ligament was then released. The ulnar nerve was exposed proximally adjacent to the medial intermuscular septum portion the medial intermuscular septum was released along with the medial triceps. Finger dissection was performed proximally to ensure adequate release and no compression. Attention then turned distally the FCU fascia was released. Ulnar nerve was neurolysed from proximal to distal any remnant fibrous bands were then carefully released and elevated. The ulnar nerve was released past the first motor branch. Finger dissection was then performed distally to ensure adequate release and no residual compression. Elbow was then placed through range of motion and the ulnar nerve did slightly translate anteriorly have there was no evidence of subluxation over the medial epicondyle thus decision was made to forego transposition. Wound was copiously irrigated with normal saline. 20 cc of 0.5% of bupivacaine without epinephrine was injected for postoperative pain control. Tourniquet was deflated and peripheral bleeding was controlled with bipolar cautery into the wound was dry. Subcutaneous tissues were closed with 4-0 Monocryl suture. Skin was closed with horizontal mattress 4-0 nylon. Soft dressing was placed. Sponge counts, instrument counts, needle counts were correct. Patient was then awoken from anesthesia. Transferred from the operating room table to the operating room stretcher. There was no intraoperative complications patient tolerated procedure well stable to PACU. Postop plan: Patient follow the office in 2 weeks for wound check. Patient will begin range of motion immediately.
[2020-06-09 17:42] VITALS: BP 92/57
== END 2020-06-09 17:30 | disposition home or self-care (01) ==
LOC: OROUT 11:32
PROVIDERS: ATTEND Orthopaedic Surgery
DX: G56.01 Carpal tunnel syndrome, right upper limb (principal); G56.21 Lesion of ulnar nerve, right upper limb; Z20.828 Contact with and (suspected) exposure to other viral communicable diseases; Z79.899 Other long term (current) drug therapy; F41.9 Anxiety disorder, unspecified; F90.9 Attention-deficit hyperactivity disorder, unspecified type; F31.9 Bipolar disorder, unspecified; Z87.891 Personal history of nicotine dependence; Z98.890 Other specified postprocedural states; F43.10 Post-traumatic stress disorder, unspecified
CPT/HCPCS: 29848; 29999; 36415; 85027; 80048; 81001; U0003; J2250; J3490; J3010; J1170; J2704; J0690; C9803; 1810; 87635